=== PATIENT | female | born 1990 | race American Indian/Alaskan Native ===

== ENCOUNTER 2019-12-14 15:07 | Emergency (ER) | payer SELFPAY ==
[2019-12-14 15:17] VITALS: BP 128/76
[2019-12-14] MEDS ORDERED: FAMOTIDINE 20 MG/2 ML INJ IV ONE (15:44)
--- NOTE | 2019-12-14 15:44 | Emergency Department Report ---
HPI - General Chief Complaint: Allergic Reaction Time Seen by Provider: 12/14/19 15:22 - HPI HPI: 29-year-old -[place] female presents to the emergency department with a complaint of an allergic reaction that has caused hives throughout her face and neck. The patient has a known shrimp allergy and says that she was eating fried fish that was fried in the same batter as the shrimp. The symptoms began after the patient touched her food and then touched her face. She denies any swelling of the tongue, lips, throat, shortness of breath, difficulty swallowing, chest pain, or any other symptoms. She took 50 mg of Benadryl prior to arrival. She ate the fish about 1.5 hours prior to arrival. ED Past Medical Hx - Past Medical History Previous Medical History?: No - Surgical History Past Surgical History?: No - Social History Smoking Status: Never Smoker Substance Use Type: None - Medications Home Medications: Home Medications Medication Instructions Recorded Confirmed Last Taken Type Famotidine [Pepcid] 20 mg PO BID #6 tablet 12/14/19 Unknown Rx diphenhydrAMINE [Benadryl CAP] 25 mg PO Q8HR PRN #9 capsule 12/14/19 Unknown Rx ED Review of Systems ROS: Stated complaint: ALLERGIC REACTION Other details as noted in HPI Comment: All other systems reviewed and negative Constitutional: denies: chills, fever Eyes: denies: eye pain, vision change ENT: denies: ear pain, throat pain Respiratory: denies: cough, shortness of breath Cardiovascular: denies: chest pain Gastrointestinal: denies: nausea, vomiting Skin: rash (hives), pruritus Neurological: denies: headache, weakness Physical Exam - Physical Exam Vital Signs: Vital Signs 12/14/19 15:14 Temperature 97.8 F Pulse Rate 76 Respiratory 16 Rate Blood Pressure 128/76 [Left] O2 Sat by Pulse 100 Oximetry Physical Exam: GENERAL: The patient is well-developed well-nourished. HENT: Normocephalic. Atraumatic. Patient has moist mucous membranes. Oropharynx is clear without any obvious swelling of the tongue or throat. No drooling or trismus. EYES: Extraocular motions are intact. NECK: Supple. Trachea is midline. CHEST/LUNGS: Clear to auscultation. There is no respiratory distress noted. HEART/CARDIOVASCULAR: Regular. There is no tachycardia. There is no murmur. SKIN: Skin is warm and dry. Patient has some hives seen to her face and anterior neck. NEURO: The patient is awake, alert, and oriented. The patient is cooperative. Normal speech. MUSCULOSKELETAL: There is no tenderness or deformity. There is no limitation range of motion. There is no evidence of acute injury. ED Course Vital Signs 12/14/19 15:14 Temperature 97.8 F Pulse Rate 76 Respiratory 16 Rate Blood Pressure 128/76 [Left] O2 Sat by Pulse 100 Oximetry ED Medical Decision Making - Medical Decision Making This patient presents with an allergic reaction that has caused urticaria to the face and neck. There is no signs of angioedema or anaphylaxis. The patient says that her urticarial lesions have decreased significantly since they began and since she took the Benadryl. She already took 50 mg of Benadryl prior to arrival. She apparently has an allergy to steroids and does not appear to require any epinephrine at this time. The patient is already asking for discharge home. She has been given a dose of Pepcid and will be discharged home with Pepcid and Benadryl. We discussed the possibility of rebound of her symptoms and the patient will go to the closest emergency department with any worsening of her symptoms or any acute distress. Vital signs stable throughout her ED course. Critical Care Time: No Critical care attestation.: If time is entered above; I have spent that time in minutes in the direct care of this critically ill patient, excluding procedure time. ED Disposition Clinical Impression: Allergic reaction Qualifiers: Encounter type: initial encounter Qualified Code(s): T78.40XA - Allergy, unspecified, initial encounter Disposition: - TO HOME OR SELFCARE Is pt being admited?: No Condition: Stable Instructions: Urticaria (ED), Food Allergy (ED) Additional Instructions: Please follow-up with a primary care physician in the next few days. Return to the emergency department with any worsening of your symptoms, swelling of the tongue or throat, difficulty swallowing, shortness of breath or chest pain, or with any acute distress. Prescriptions: diphenhydrAMINE [Benadryl CAP] 25 mg PO Q8HR PRN #9 capsule PRN Reason: Allergic Reaction Famotidine [Pepcid] 20 mg PO BID #6 tablet Referrals: PCP, Your [Other] - 2-3 Days Time of Disposition: 15:44
== END 2019-12-14 16:00 | disposition home or self-care (01) ==
LOC: ED 15:07
DX: T78.40XA Allergy, unspecified, initial encounter (principal); Z91.013 Allergy to seafood; Z88.6 Allergy status to analgesic agent; X58.XXXA Exposure to other specified factors, initial encounter
CPT/HCPCS: 96374; 99282